=== PATIENT | male | born 1995 | race African-American/Black ===

== ENCOUNTER 2017-11-17 14:21 | Emergency (ER) | payer MEDICAID ==
[~2017-11-17] VITALS: Ht 177.8 cm; Wt 98.7 kg
[2017-11-17 14:22] VITALS: BP 140/84
[2017-11-17] MEDS ORDERED: LIDOCAINE-MPF 1%, 5ML ONE ×2 (14:41→15:23)
[2017-11-17] MEDS ORDERED: BACITRACIN ZINC OINT 500U/GM, 0.9 GM ONE (15:49)
== END 2017-11-17 16:16 | disposition home or self-care (01) ==
LOC: ED 16:04
DX: S61.210A Laceration without foreign body of right index finger without damage to nail, initial encounter (principal); W27.8XXA Contact with other nonpowered hand tool, initial encounter; Y93.89 Activity, other specified; Y92.098 Other place in other non-institutional residence as the place of occurrence of the external cause; Y99.8 Other external cause status
CPT/HCPCS: 12002; 29130; 99284